=== PATIENT | male | born 1980 | race Caucasian/White ===

== ENCOUNTER 2022-08-10 16:40 | Inpatient (IN) | payer OTHER, MEDICAID ==
[~2022-08-10] VITALS: Ht 177.8 cm; Wt 68.5 kg
[2022-08-10 17:14] LABS: BASOPHILS % (AUTO) 0.4 % (0.0-2.0); EOSINOPHILS % (AUTO) 0.9 % (1.0-6.0); HEMOGLOBIN 15.3 g/dL (13.5-17.5); LYMPHOCYTES # (AUTO) 1.9 K/uL (1.0-4.8); LYMPHOCYTES % (AUTO) 18.3 % (22.0-44.0); MEAN CORPUSCULAR HEMOGLOBIN 31.3 pg (26.0-34.0); MEAN CORPUSCULAR HGB CONC 34.1 G/dL (31.0-37.0); MEAN CORPUSCULAR VOLUME 92 fL (80-100); MONOCYTES # (AUTO) 0.8 K/uL (0.1-1.0); MONOCYTES % (AUTO) 7.1 % (2.0-9.0); NEUTROPHILS # (AUTO) 7.7 K/uL (1.8-7.7); NEUTROPHILS % (AUTO) 73.3 % (40.0-70.0); PLATELET COUNT (AUTO) 276 K/uL (150-450); RED CELL DISTRIBUTION WIDTH 13.1 % (11.5-14.5)
[2022-08-10 17:23] LABS: ANION GAP 11 mmol/L (8-16); CALCIUM, TOTAL 9.5 mg/dL (8.8-10.5); CARBON DIOXIDE 27 mmol/L (22-29); CHLORIDE 104 mmol/L (98-107); GLOMERULAR FILTR. RATE CALC > 60 mL/min (>60); GLUCOSE,RANDOM 87 mg/dL (70-110); POTASSIUM 4.4 mmol/L (3.5-5.1); SODIUM SERUM 142 mmol/L (136-145); UREA NITROGEN, BLOOD 22 mg/dL (7-18)
[2022-08-10 17:28] LABS: ALANINE AMINOTRANSFERASE 20 U/L (12-78); ALBUMIN 4.3 g/dL (3.4-5.0); ALKALINE PHOSPHATASE 67 U/L (46-116); ASPARTATE AMINOTRANSFERASE 20 U/L (15-37); BILIRUBIN,TOTAL 0.6 mg/dL (0.1-1.0); TOTAL PROTEIN, SERUM 8.2 g/dL (6.4-8.2)
[2022-08-10 19:27] LABS: AMPHET/METH SCREEN,URINE NEGATIVE (NEGATIVE); BARBITURATE SCREEN, URINE NEGATIVE (NEGATIVE); BENZODIAZEPINES SCREEN,URINE NEGATIVE (NEGATIVE); CANNABINOID SCREEN,URINE POSITIVE (NEGATIVE); COCAINE SCREEN,URINE NEGATIVE (NEGATIVE); METHADONE SCREEN, URINE NEGATIVE (NEGATIVE); OPIATE SCREEN,URINE NEGATIVE (NEGATIVE); PHENCYCLIDINE SCREEN,URINE NEGATIVE (NEGATIVE)
[2022-08-10] MEDS ORDERED: ALPRAZolam 1 MG TABLET PO ONE (19:30)
[2022-08-10] MEDS ORDERED: DiphenhydrAMINE HCL 25 MG CAPSULE PO ONE (21:15)
[2022-08-10] MEDS ORDERED: LORazepam 1 MG TABLET PO ONE (21:15)
[2022-08-11] MEDS: LORazepam 2 MG TABLET PO PRN ×4 (02:12→22:10)
[2022-08-11] MEDS ORDERED: ACETAMINOPHEN 325 MG TABLET PO ONE (02:15)
[2022-08-11] MEDS ORDERED: KETOROLAC TROMETHAMINE 30 MG/ML VIAL IM ONE (02:45)
[2022-08-11] MEDS ORDERED: TraMADol HCL 50 MG TABLET PO ONE (03:00)
[2022-08-11] MEDS ORDERED: OxyCODONE HCL/ACETAMINOPHEN 10-325 MG TABLET PO ONE (03:15)
[2022-08-11] MEDS: HALOPERIDOL 5 MG TABLET PO PRN (08:15)
[2022-08-11] MEDS: SERTRALINE HCL 50 MG TABLET PO SCH (10:30)
[2022-08-11 10:39] VITALS: BP 127/75
[2022-08-11] MEDS ORDERED: ONDANSETRON HCL 4 MG TABLET PO PRN (11:15)
[2022-08-11] MEDS ORDERED: GuaiFENesin/D-METHORPHAN [SUGAR-FREE] 200-20MG/10 ML SYRUP UDCUP PO PRN (11:15)
[2022-08-11] MEDS ORDERED: DOCUSATE SODIUM 100 MG CAPSULE PO PRN (11:15)
[2022-08-11] MEDS ORDERED: CloNIDine HCL 0.1 MG TABLET PO PRN (11:15)
[2022-08-11] MEDS ORDERED: ACETAMINOPHEN 325 MG TABLET PO PRN (11:15)
[2022-08-11] MEDS ORDERED: LOPERAMIDE HCL 2 MG CAPSULE PO PRN (11:15)
[2022-08-11] MEDS ORDERED: ALBUTEROL SULFATE HFA 90 MCG/PUFF 8 GM INHALER IH PRN (11:15)
[2022-08-11] MEDS ORDERED: NICOTINE 14 MG/24 HOUR PATCH TD PRN (11:15)
[2022-08-11] MEDS ORDERED: MAGNESIUM HYDROXIDE SUSPENSION 30 ML UDCUP PO PRN (11:15)
[2022-08-11] MEDS ORDERED: MAG HYDROX/AL HYDROX/SIMETH ES 30 ML SUSPENSION UDCUP PO PRN (11:15)
[2022-08-11] MEDS ORDERED: IBUPROFEN 400 MG TABLET PO PRN (11:15)
[2022-08-11] MEDS ORDERED: PETROLATUM,WHITE 28 GM JELLY TP PRN (11:15)
[2022-08-11 12:35] VITALS: BP 128/78
[2022-08-11] MEDS: OxyCODONE HCL/ACETAMINOPHEN 5-325 MG TABLET PO PRN (12:35)
[2022-08-11] MEDS ORDERED: CYCLOBENZAPRINE HCL 10 MG TABLET PO SCH (13:00)
[2022-08-11 15:41] LABS: GLUCOMETER DEV NAME(LOC) POC.BV
[2022-08-11] MEDS: CYCLOBENZAPRINE HCL 10 MG TABLET PO SCH (16:22)
[2022-08-11] MEDS ORDERED: DENTURE ADHESIVE 68 GM CREAM DT PRN (16:30)
[2022-08-11 20:00] VITALS: BP 105/62
[2022-08-12 08:25] VITALS: BP 103/70
[2022-08-12] MEDS: CYCLOBENZAPRINE HCL 10 MG TABLET PO SCH ×3 (08:51→16:52)
[2022-08-12] MEDS: SERTRALINE HCL 50 MG TABLET PO SCH (08:54)
[2022-08-12] MEDS: LORazepam 2 MG TABLET PO PRN ×2 (08:54→15:27)
[2022-08-12 13:06] VITALS: BP 108/72
[2022-08-12] MEDS: OxyCODONE HCL/ACETAMINOPHEN 5-325 MG TABLET PO PRN (13:06)
[2022-08-12 20:14] VITALS: BP 97/62
[2022-08-12] MEDS: ZOLPIDEM TARTRATE 10 MG TABLET PO PRN (21:16)
[2022-08-13] MEDS: LORazepam 2 MG TABLET PO PRN ×3 (00:15→21:44)
[2022-08-13 00:56] VITALS: BP 107/71
[2022-08-13] MEDS: OxyCODONE HCL/ACETAMINOPHEN 5-325 MG TABLET PO PRN ×2 (01:09→10:08)
[2022-08-13] MEDS: HALOPERIDOL 5 MG TABLET PO PRN (08:25)
[2022-08-13] MEDS: CYCLOBENZAPRINE HCL 10 MG TABLET PO SCH ×4 (08:28→17:31)
[2022-08-13] MEDS: SERTRALINE HCL 50 MG TABLET PO SCH ×2 (08:28→09:37)
[2022-08-13 08:30] VITALS: BP 120/80
[2022-08-13 10:08] VITALS: BP 122/78
[2022-08-13 20:00] VITALS: BP 107/79
[2022-08-13 21:40] VITALS: BP 151/74
[2022-08-14] MEDS: OxyCODONE HCL/ACETAMINOPHEN 5-325 MG TABLET PO PRN ×2 (06:08→14:15)
[2022-08-14 06:09] VITALS: BP_SYST 112
[2022-08-14 08:11] VITALS: BP 115/58
[2022-08-14] MEDS: SERTRALINE HCL 50 MG TABLET PO SCH (08:19)
[2022-08-14] MEDS: CYCLOBENZAPRINE HCL 10 MG TABLET PO SCH ×3 (08:19→16:23)
[2022-08-14] MEDS: LORazepam 2 MG TABLET PO PRN (16:24)
[2022-08-14 20:14] VITALS: BP 138/74
[2022-08-15] MEDS: OxyCODONE HCL/ACETAMINOPHEN 5-325 MG TABLET PO PRN ×2 (05:54→14:07)
[2022-08-15 06:16] VITALS: BP 106/75
[2022-08-15 08:07] VITALS: BP 112/77
[2022-08-15] MEDS: SERTRALINE HCL 50 MG TABLET PO SCH (08:11)
[2022-08-15] MEDS: CYCLOBENZAPRINE HCL 10 MG TABLET PO SCH ×3 (08:11→16:32)
[2022-08-15] MEDS: LORazepam 2 MG TABLET PO PRN ×2 (08:11→16:32)
[2022-08-15] MEDS: HALOPERIDOL 5 MG TABLET PO PRN (17:45)
[2022-08-15] MEDS ORDERED: HALOPERIDOL LACTATE 5 MG/ML VIAL IM ONE (18:30)
[2022-08-15] MEDS ORDERED: LORazepam 2 MG/ML VIAL IM ONE (18:30)
[2022-08-15] MEDS ORDERED: DiphenhydrAMINE HCL 50 MG/ML VIAL IM ONE (18:30)
[2022-08-15 20:00] VITALS: BP 105/74
[2022-08-16 06:23] VITALS: BP 109/76
[2022-08-16] MEDS: OxyCODONE HCL/ACETAMINOPHEN 5-325 MG TABLET PO PRN ×2 (06:23→16:04)
[2022-08-16] MEDS: LORazepam 2 MG TABLET PO PRN ×3 (06:23→16:35)
[2022-08-16 08:05] VITALS: BP 118/62
[2022-08-16] MEDS: SERTRALINE HCL 50 MG TABLET PO SCH (08:16)
[2022-08-16] MEDS: CYCLOBENZAPRINE HCL 10 MG TABLET PO SCH ×3 (08:16→16:01)
[2022-08-16 20:21] VITALS: BP 114/85
[2022-08-16] MEDS: ZOLPIDEM TARTRATE 10 MG TABLET PO PRN (22:06)
[2022-08-17 05:59] VITALS: BP 133/78
[2022-08-17] MEDS: LORazepam 2 MG TABLET PO PRN ×2 (05:59→16:48)
[2022-08-17] MEDS: OxyCODONE HCL/ACETAMINOPHEN 5-325 MG TABLET PO PRN ×3 (05:59→22:38)
[2022-08-17] MEDS: CYCLOBENZAPRINE HCL 10 MG TABLET PO SCH ×3 (08:13→16:48)
[2022-08-17] MEDS: SERTRALINE HCL 50 MG TABLET PO SCH (08:13)
[2022-08-17 08:36] VITALS: BP 129/69
[2022-08-17 20:21] VITALS: BP 124/87
[2022-08-17] MEDS: ZOLPIDEM TARTRATE 10 MG TABLET PO PRN (22:37)
[2022-08-18 06:51] VITALS: BP 142/75
[2022-08-18] MEDS: OxyCODONE HCL/ACETAMINOPHEN 5-325 MG TABLET PO PRN ×2 (06:52→15:40)
[2022-08-18] MEDS: SERTRALINE HCL 50 MG TABLET PO SCH (08:00)
[2022-08-18] MEDS: CYCLOBENZAPRINE HCL 10 MG TABLET PO SCH ×3 (08:00→16:05)
[2022-08-18 08:05] VITALS: BP 134/89
[2022-08-18] MEDS: LORazepam 2 MG TABLET PO PRN ×2 (12:50→22:05)
[2022-08-18 20:00] VITALS: BP 142/78
[2022-08-18] MEDS: ZOLPIDEM TARTRATE 10 MG TABLET PO PRN (22:05)
[2022-08-19] MEDS: OxyCODONE HCL/ACETAMINOPHEN 5-325 MG TABLET PO PRN (06:55)
[2022-08-19 08:04] VITALS: BP 133/74
[2022-08-19] MEDS: CYCLOBENZAPRINE HCL 10 MG TABLET PO SCH ×2 (08:21→13:01)
[2022-08-19] MEDS: SERTRALINE HCL 50 MG TABLET PO SCH (08:21)
[2022-08-19] MEDS ORDERED: SERT-439 PO (13:09)
== END 2022-08-19 15:58 | disposition home or self-care (01) | DRG 885 ==
LOC: EMS 16:44 → B2S 08-11 06:17
PROVIDERS: ADMIT Psychiatry & Neurology Psychiatry; ATTEND Psychiatry & Neurology Psychiatry
DX: F25.1 Schizoaffective disorder, depressive type (principal); R45.851 Suicidal ideations; F33.2 Major depressive disorder, recurrent severe without psychotic features; G47.00 Insomnia, unspecified; F12.10 Cannabis abuse, uncomplicated; Z20.822 Contact with and (suspected) exposure to COVID-19; F41.9 Anxiety disorder, unspecified; S39.012A Strain of muscle, fascia and tendon of lower back, initial encounter; X58.XXXA Exposure to other specified factors, initial encounter; Y93.89 Activity, other specified; Y92.89 Other specified places as the place of occurrence of the external cause; Y99.8 Other external cause status
CPT/HCPCS: 80053; 80307; 85025; 99285; G0480; J1200; J1630; J1885; J2060

== ENCOUNTER 2024-12-11 20:54 | Inpatient (IN) | payer OTHER, MEDICAID ==
[~2024-12-11] VITALS: Ht 177.8 cm; Wt 90.9 kg
[~2024-12-11 20:54] MED LIST: SERT-439 PO
[2024-12-11 21:50] LABS: COVID AG,FIA SOURCE NASAL SWAB
[2024-12-11 22:14] LABS: SARS-COV2 (COVID) ANTIGEN,FIA Negative (Negative)
[2024-12-11 22:16] LABS: PLATELET COUNT (AUTO) 274 K/uL (150-450); RED BLOOD CELL COUNT(AUTO) 4.25 MIL/uL (4.50-5.90); RED CELL DISTRIBUTION WIDTH 13.8 % (11.5-14.5); WHITE BLOOD COUNT (AUTO) 6.9 K/uL (4.5-11.0)
[2024-12-11 22:24] LABS: CALCIUM, TOTAL 8.6 mg/dL (8.8-10.5); CREATININE 0.91 mg/dL (0.60-1.30); GLOMERULAR FILTR. RATE CALC > 60 mL/min (>60); GLUCOSE,RANDOM 101 mg/dL (70-110); SODIUM SERUM 141 mmol/L (136-145); UREA NITROGEN, BLOOD 11 mg/dL (7-18)
[2024-12-11] MEDS: NALOXONE HCL 1 MG/ML 2 ML SYRINGE IVP ONE (22:38)
[2024-12-11] MEDS: SODIUM CHLORIDE 0.9% 1,000 ML IV ONE (22:38)
[2024-12-12 00:32] LABS: PH,URINE DRUG SCREEN 5.5 (5.0-8.0)
[2024-12-12 00:39] LABS: ALCOHOL, URINE DRUG SCREEN NEGATIVE (NEGATIVE); AMPHET/METH SCREEN,URINE NEGATIVE (NEGATIVE); BARBITURATE SCREEN, URINE NEGATIVE (NEGATIVE); CANNABINOID SCREEN,URINE NEGATIVE (NEGATIVE); COCAINE SCREEN,URINE POSITIVE (NEGATIVE); METHADONE SCREEN, URINE NEGATIVE (NEGATIVE)
[2024-12-12 00:56] LABS: ASPARTATE AMINOTRANSFERASE 27 U/L (15-37); TOTAL PROTEIN, SERUM 7.1 g/dL (6.4-8.2)
[2024-12-12] MEDS ORDERED: ZOLPIDEM TARTRATE 10 MG TABLET PO PRN (02:45)
[2024-12-12] MEDS: KETOROLAC TROMETHAMINE 30 MG/ML VIAL IVP ONE (05:30)
[2024-12-12] MEDS: ACETAMINOPHEN 1000 MG/ISO-OSM 100 ML IV ONE (05:47)
[2024-12-12] MEDS: POTASSIUM CHLORIDE 20 MEQ ER TABLET PO ONE (05:48)
[2024-12-12 07:33] VITALS: O2SAT 98
[2024-12-12] MEDS ORDERED: MAG HYDROX/ALUMINUM HYD/SIMETH ES 30 ML SUSPENSION UDCUP PO PRN (10:45)
[2024-12-12] MEDS ORDERED: ALBUTEROL SULFATE HFA 90 MCG/PUFF 8 GM INHALER IH PRN (10:45)
[2024-12-12] MEDS ORDERED: MAGNESIUM HYDROXIDE SUSPENSION 30 ML UDCUP PO PRN (10:45)
[2024-12-12] MEDS ORDERED: PETROLATUM,WHITE 28 GM JELLY TP PRN (10:45)
[2024-12-12] MEDS ORDERED: LOPERAMIDE HCL 2 MG CAPSULE PO PRN (10:45)
[2024-12-12] MEDS ORDERED: DOCUSATE SODIUM 100 MG CAPSULE PO PRN (10:45)
[2024-12-12] MEDS ORDERED: GuaiFENesin/D-METHORPHAN [SUGAR-FREE] 200-20MG/10 ML SYRUP UDCUP PO PRN (10:45)
[2024-12-12] MEDS ORDERED: ONDANSETRON 4 MG TABLET PO PRN (10:45)
[2024-12-12 11:42] VITALS: BP 148/96; PULSE 86; RESP 16; TEMP 98.1; O2SAT 99
[2024-12-12] MEDS: ACETAMINOPHEN 325 MG TABLET PO PRN (12:25)
[2024-12-12] MEDS: SERTRALINE HCL 50 MG TABLET PO ONE (12:25)
[2024-12-12 13:25] VITALS: RESP 16
[2024-12-12] MEDS ORDERED: HYDROCORTISONE 25 MG RECTAL SUPPOSITORY PR PRN (17:00)
[2024-12-12 20:08] VITALS: BP 134/83; PULSE 89; RESP 18; TEMP 97.8; O2SAT 98
[2024-12-12 21:14] VITALS: BP 136/87; PULSE 88; RESP 18; TEMP 97.6; O2SAT 98
[2024-12-12] MEDS: OxyCODONE HCL 5 MG IR TABLET PO PRN (21:16)
[2024-12-12 22:16] VITALS: RESP 18
[2024-12-13] VITALS (9 sets, daily range): BP systolic 129–141; BP diastolic 82–99; PULSE 76–95; RESP 18; TEMP 98–98.6; O2SAT 97–99
[2024-12-13] MEDS: BACITRACIN 28 GM OINTMENT TP SCH (08:14)
[2024-12-13] MEDS: SERTRALINE HCL 50 MG TABLET PO SCH (08:17)
[2024-12-13 08:26] LABS: PLATELET COUNT (AUTO) 265 K/uL (150-450); RED BLOOD CELL COUNT(AUTO) 4.34 MIL/uL (4.50-5.90); RED CELL DISTRIBUTION WIDTH 13.6 % (11.5-14.5); WHITE BLOOD COUNT (AUTO) 7.9 K/uL (4.5-11.0)
[2024-12-13 09:02] LABS: ASPARTATE AMINOTRANSFERASE 19 U/L (15-37); CALCIUM, TOTAL 7.9 mg/dL (8.8-10.5); CHOL/HDL RATIO 3.2 (4.2-7.3); CREATININE 0.91 mg/dL (0.60-1.30); GLOMERULAR FILTR. RATE CALC > 60 mL/min (>60); GLUCOSE,RANDOM 100 mg/dL (70-110); LDL CHOL (CALC.) 70 mg/dL (0-130); SODIUM SERUM 141 mmol/L (136-145); TOTAL PROTEIN, SERUM 6.3 g/dL (6.4-8.2); UREA NITROGEN, BLOOD 11 mg/dL (7-18)
[2024-12-13] MEDS ORDERED: SERTRALINE HCL 50 MG TABLET PO SCH (17:00)
[2024-12-13] MEDS: NICOTINE 14 MG/24 HOUR PATCH TD PRN (18:56)
[2024-12-13] MEDS: CYCLOBENZAPRINE HCL 10 MG TABLET PO PRN (21:28)
[2024-12-14 07:47] VITALS: RESP 20
[2024-12-14 08:23] VITALS: BP 131/107; PULSE 123; RESP 20; TEMP 97.6; O2SAT 95
[2024-12-14 08:47] VITALS: RESP 20; O2SAT 95
[2024-12-14 10:50] VITALS: BP 139/70; PULSE 98; RESP 16; TEMP 97.8; O2SAT 96
== END 2024-12-14 13:42 | disposition home or self-care (01) | DRG 885 ==
LOC: EMS 20:54 → B2S 12-12 07:54
PROVIDERS: ADMIT Psychiatry & Neurology Psychiatry; ATTEND Psychiatry & Neurology Psychiatry
PROC: GZ56ZZZ Individual Psychotherapy, Supportive (ICD-10-PCS; 2024-12-13)
PROC: GZ52ZZZ Individual Psychotherapy, Cognitive (ICD-10-PCS; principal; 2024-12-14)
DX: F33.2 Major depressive disorder, recurrent severe without psychotic features (principal); F25.9 Schizoaffective disorder, unspecified; D64.9 Anemia, unspecified; E87.6 Hypokalemia; I10 Essential (primary) hypertension; Z20.822 Contact with and (suspected) exposure to COVID-19; S41.119A Laceration without foreign body of unspecified upper arm, initial encounter; X58.XXXA Exposure to other specified factors, initial encounter; T50.902A Poisoning by unspecified drugs, medicaments and biological substances, intentional self-harm, initial encounter; F12.90 Cannabis use, unspecified, uncomplicated; Y93.89 Activity, other specified; Y92.89 Other specified places as the place of occurrence of the external cause; Y99.8 Other external cause status; Z91.011 Allergy to milk products
CPT/HCPCS: 80048; 80053; 80061; 80076; 80307; 83036; 84436; 84443; 85025; 93005; 96361; 96374; 99285; G0480; G0481; J0131; J1885; J2312; J7030; 36415-L1; 36415-TC